=== PATIENT | female | born 1945 | race Asian ===

== ENCOUNTER 2017-02-04 14:19 | Outpatient (CLI) | payer MEDICARE, OTHER ==
--- NOTE | 2017-02-04 16:02 | Diagnostic Imaging Report ---
Indication: Pain Findings: 3 views of the left wrist were obtained. There is abnormal diminished size and sclerosis of the lunate which appears collapsed. Findings could be on the basis of an stage were advanced AVN. The bones are osteopenic. There is slight dorsal subluxation of the lunate. There is moderate osteoarthrosis of the distal radioulnar joint and radial carpal joint. 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 Osteopenia Osteoarthritis
--- NOTE | 2017-02-04 16:28 | Diagnostic Imaging Report ---
Indication: Pain Findings: 3 views of the left shoulder were obtained. Alignment of the left shoulder is normal. No acute fracture is identified. Bones are osteopenic. Soft tissues are unremarkable. Impression: No acute injury identified
== END 2017-02-04 16:19 | disposition home or self-care (01) ==
LOC: RAD 14:19
DX: M25.512 Pain in left shoulder (principal); M19.032 Primary osteoarthritis, left wrist; M85.88 Other specified disorders of bone density and structure, other site